=== PATIENT | male | born 1990 | race Two or more races ===

== ENCOUNTER 2016-10-15 08:13 | Emergency (ER) | payer SELFPAY ==
[~2016-10-15] VITALS: Ht 170.2 cm; Wt 108.9 kg
[2016-10-15 08:28] VITALS: BP 132/83
[2016-10-15] MEDS ORDERED: LORazepam 1mg tab ORAL ONE (09:15)
[2016-10-15] MEDS ORDERED: ATIVAN0.5 MG ORAL (09:18)
[2016-10-15 09:27] VITALS: BP 132/83
--- NOTE | 2016-10-15 10:03 | Emergency Room Report ---
History of Present Illness General Chief Complaint: General Complaint Source: Patient Present Illness HPI 26YOM [employer] patient with anxiety and "funny feeling in my chest" last night and insomnia. Did cocaine and ETOH 2 days ago Last time was 1 month prior when he did cocaine "Regularly" Denies other drugs Denies SOB, diaphoresis, nausea/vomiting Allergies: Coded Allergies: No Known Allergies (Unverified , 10/15/16) Patient History Past Medical History: none Past Surgical History: none Pertinent Family History: none Social History: Reports: alcohol use, drug use, smoking Immunizations: UTD Reviewed Nursing Documentation: PMH: Agreed, PSxH: Agreed Nursing Documentation-PMH Hx Asthma: Yes Review of Systems All Other Systems: negative except mentioned in HPI Physical Exam Vital Signs Date Time Temp Pulse Resp B/P Pulse Ox O2 Delivery O2 Flow Rate FiO2 10/15/16 08:16 97.9 69 15 132/83 99 Room Air Sp02 EP Interpretation: reviewed, normal General Appearance: normal inspection, well appearing, no apparent distress, alert, GCS 15, non-toxic Head: normocephalic, atraumatic Eyes: bilateral eye EOMI, bilateral eye PERRL ENT: normal ENT inspection, hearing grossly normal, normal voice Neck: normal inspection, full range of motion, supple, no bony tend Respiratory: normal inspection, lungs clear, normal breath sounds, no respiratory distress, no retraction, no wheezing Cardiovascular #1: regular rate, rhythm, no edema Gastrointestinal: normal inspection, normal bowel sounds, non tender, soft, no guarding, no hernia Genitourinary: no CVA tenderness Musculoskeletal: normal inspection, back normal, normal range of motion, Hiwot' s Sign negative Neurologic: normal inspection, alert, oriented x3, responsive, book illustrator III-XII nml as tested, motor strength/tone normal, speech normal Psychiatric: normal inspection, judgement/insight normal, mood/affect normal Skin: normal inspection, normal color, no rash Medical Decision Making Diagnostic Impression: Primary Impression: Chest pain Qualified Codes: R07.9 - Chest pain, unspecified ER Course Chest discomfort, anxiety, insomnia - VSS. Afebrile - Likely related to recent cocaine use - ECG here no ischemia. NSR. ?effects of cocaine use but no ACS here - Rx Ativan as needed for insomnia, anxiety - Advised to avoid cocaine use in future DC home EKG Diagnostic Results Rate: normal Rhythm: NSR ST Segments: no acute changes ASA given to the pt in ED: No Last Vital Signs Date Time Temp Pulse Resp B/P Pulse Ox O2 Delivery O2 Flow Rate FiO2 10/15/16 09:27 97.9 69 15 132/83 99 Room Air Status: improved Disposition: HOME, SELF-CARE Condition: Improved Scripts Lorazepam* (ATIVAN*) 0.5 Mg Tablet 0.5 MG ORAL QHS for anxiety, insomnia for 3 Days, #3 TAB Prov: KARI JOHNS M.D. 10/15/16 Patient Instructions: Stimulant Use Disorder-Cocaine, Nonspecific Chest Pain, [id number] Additional Instructions: - STOP using cocaine - Take ativan only at night next 3 days as needed for insomnia, palpitations, anxiety - Return to ER for worsening chest pain, SOB KARI JOHNS M.D. Oct 15, 2016 10:03
== END 2016-10-15 09:30 | disposition home or self-care (01) ==
LOC: EMR 08:30
DX: R07.89 Other chest pain (principal); F17.200 Nicotine dependence, unspecified, uncomplicated; F41.9 Anxiety disorder, unspecified; G47.00 Insomnia, unspecified; F14.90 Cocaine use, unspecified, uncomplicated
CPT/HCPCS: 93005; 99283